=== PATIENT | female | born 1995 | race Caucasian/White ===

== ENCOUNTER 2016-12-12 14:27 | Emergency (ER) | payer BC, OTHER ==
[~2016-12-12] VITALS: Ht 157.5 cm; Wt 55.9 kg
[2016-12-12 14:30] VITALS: TEMP 37.3; Ht 157.5 cm; Wt 55.9 kg
[2016-12-12] MEDS ORDERED: KETOROLAC TROMETHAMINE 30 MG/ML VIAL IV STA (14:45)
[2016-12-12] MEDS ORDERED: ONDANSETRON INJ 2 MG/ML 2 ML VIAL IV STA ×2 (14:45→15:56)
[2016-12-12] MEDS ORDERED: SODIUM CHLORIDE 0.9% 1000ML 2,000 ML IV STA (14:45)
[2016-12-12 15:05] LABS: BASO % 0.4 %; BASO ABS # 0.03 K/uL (0-0.2); COMPLETE YES; EOS % 0.5 %; HEMATOCRIT 37.3 % (37-47); IG% 0.1 %; LYMPH % 36.3 %; LYMPH ABS # 3.04 K/uL (1.2-3.4); MEAN CELL VOLUME 86.7 fL (80-100); MEAN CORPUSCULAR HEMOGLOBIN 29.3 pg (25-34); MEAN CORPUSCULAR HGB CONC 33.8 g/dl (32-36); MEAN PLATELET VOLUME 10.8 fL (7.4-10.4); MONO % 7.9 %; NEUT % 54.8 %; PLATELET COUNT 301 K/uL (130-400); WHITE BLOOD COUNT 8.37 K/uL (4.8-10.8)
[2016-12-12 15:17] LABS: URINE APPEARANCE CLEAR (CLEAR); URINE BILIRUBIN NEG (NEG); URINE COLOR YELLOW; URINE NITRITE NEG (NEG); URINE PH 5.5 (4.5-7.5); UROBILINOGEN NEG (NEG); ZZUR CULT IF INDIC CLEAN CATCH NO
[2016-12-12 15:22] LABS: MANUAL MICROSCOPIC REQUIRED? NO; REVIEW REQ? NO
[2016-12-12 15:22] LABS: ALT/SGPT 13 U/L (12-78); AST/SGOT 9 U/L (15-37); BLOOD UREA NITROGEN 9 mg/dl (7-18); BUN/CREATININE RATIO 9.6 (10-20); CALCIUM 8.8 mg/dl (8.5-10.1); CARBON DIOXIDE 25 mmol/L (21-32); CHLORIDE 108 mmol/L (98-107); CREATININE 0.92 mg/dl (0.60-1.20); GLUCOSE 100 mg/dl (70-99); POTASSIUM 3.6 mmol/L (3.5-5.1); SODIUM 143 mmol/L (136-145)
[2016-12-12 15:23] LABS: PREG INTERNAL NEGATIVE QC NEG CLEAR BACKGROUND; PREG INTERNAL POSITIVE QC POS CONTROL LINE
[2016-12-12 15:25] LABS: ALKALINE PHOSPHATASE 62 U/L (45-117)
--- NOTE | 2016-12-12 17:12 | DIAGNOSTIC IMAGING REPORT ---
ULTRASOUND OF THE PELVIS CLINICAL HISTORY: Pelvic pain. COMPARISON STUDY: No priors. TECHNIQUE: Real-time, grayscale, and color flow sonography of the pelvis is performed both transabdominally and endovaginally. Images are reviewed in the transverse and longitudinal planes. FINDINGS: Uterus: The uterus is normal in size and echotexture, measuring 7.7 x 4.4 x 5.2 cm. Endometrium: The endometrium is normal in appearance, and the endometrial stripe is normal in thickness measuring up to 0.5 cm. Ovaries: The ovaries are normal in size and morphology. The right ovary measures 2.6 x 1.7 x 2.5 cm and the left ovary measures 2.6 x 1.5 x 2.4 cm. Small follicles are seen bilaterally. Normal Doppler waveforms are shown within both ovaries. Pelvis: There is trace free fluid in the cul-de-sac. No concerning adnexal lesion is seen. IMPRESSION: 1. No acute sonographic amount is identified in the pelvis. 2. There is trace and likely physiologic free fluid in the cul-de-sac. Electronically signed by: Javier Stevenson M.D. 12/12/2016 5:10 PM Dictated Date/Time: 12/12/2016 5:09 PM
[2016-12-12] MEDS ORDERED: METOCLOPRAMIDE HCL INJ 5 MG/ML 2 ML VIAL IV STA (17:22)
--- NOTE | 2016-12-12 17:35 | EMERGENCY ROOM VISIT NOTE ---
History Report prepared by Tha: Amy Moon Under the Supervision of: Dr. Agus Wahl D.O. First contact with patient: 14:35 Chief Complaint: NAUSEA Stated Complaint: NAUSEA, CRAMPING, BLADDER PAIN Nursing Triage Summary: pt c/o abd pain started yesterday , and urinary sx with burning for awhile now. feels nauseated and has vomited History of Present Illness Differential diagnoses includes but is not limited to gastritis, peptic ulcer disease, GERD, gallbladder disease, pancreatitis, small bowel obstruction, acute coronary syndrome, pericarditis, ischemic bowel, irritable bowel disease, irritable bowel syndrome, appendicitis, diverticulitis, malignancy, hernia, urinary tract infection, torsion, [/ectopic (if female)], perforation, trauma, infectious. The patient is a 21 year old female who presents to the Emergency Room with complaints of constant abdominal cramping beginning yesterday. The patient states that she got her period yesterday and, though she normally has bad periods, this is the worst that she has ever had. The patient complains of vomiting last night but not this morning, constant nausea, abdominal pain and cramping that is consistent with her normal periods, burning with urination that began 1 month ago, diarrhea beginning 1 month ago, and urinary frequency beginning 1 month ago. She denies any chest pain, shortness of breath, fever, abdominal surgeries, and abnormal vaginal bleeding or discharge. The patient states that the pain she is having today is the same type of pain that she usually has with her periods but it is worse. She notes that her last menstrual period was 1 month ago. Source of History: patient Onset: yesterday Position: abdomen Quality: cramping Timing: constant Associated Symptoms: + diarrhea, + nausea, + urinary symptoms, + vomiting, No SOB, No chest pain, No fevers Note: She denies any abdominal surgeries, and abnormal vaginal bleeding or discharge. Review of Systems See HPI for pertinent positives & negatives. A total of 10 systems reviewed and were otherwise negative. Past Medical & Surgical Medical Problems: (1) No Known Active Medical Problems Family History No pertinent family history stated. Social History Smoking Status: Never Smoker Smokeless Tobacco Use: No Marital Status: in relationship Occupation Status: employed Current/Historical Medications Scheduled PRN Ondansetron Hcl (Zofran), 4 MG PO TID PRN for Nausea Allergies Coded Allergies: No Known Allergies (Unverified , 12/12/16) Physical Exam Vital Signs Date Time Temp Pulse Resp B/P Pulse Ox O2 Delivery O2 Flow Rate FiO2 12/12/16 19:07 65 18 118/60 99 12/12/16 17:08 19 18 114/67 98 Room Air 12/12/16 16:12 62 17 115/57 98 Room Air 12/12/16 14:30 37.3 104 18 133/79 96 Room Air Physical Exam GENERAL: sitting up in bed, disheveled, no distress, non-toxic EYE EXAM: normal conjunctiva OROPHARYNX: no exudate, no erythema, lips, buccal mucosa, and tongue normal and mucous membranes are moist NECK: supple, no nuchal rigidity, no adenopathy, non-tender LUNGS: Clear to auscultation. Normal chest wall mechanics HEART: no murmurs, S1 normal and S2 normal ABDOMEN: abdomen soft, non-tender, normo-active bowel sounds, no masses, no rebound or guarding. BACK: Back is symmetrical on inspection and there is no deformity, no midline tenderness, no CVA tenderness. SKIN: no rashes and no bruising UPPER EXTREMITIES: upper extremities are grossly normal. LOWER EXTREMITIES: No pitting edema. NEURO EXAM: Normal sensorium, cranial nerves II-XII grossly intact, normal speech, no gross weakness of arms, no gross weakness of legs. Medical Decision & Procedures ER Provider Diagnostic Interpretation: US:Per my review, radiologist interpretation. ULTRASOUND OF THE PELVIS TECHNIQUE: Real-time, grayscale, and color flow sonography of the pelvis is performed both transabdominally and endovaginally. Images are reviewed in the transverse and longitudinal planes. FINDINGS: Uterus: The uterus is normal in size and echotexture, measuring 7.7 x 4.4 x 5.2 cm. Endometrium: The endometrium is normal in appearance, and the endometrial stripe is normal in thickness measuring up to 0.5 cm. Ovaries: The ovaries are normal in size and morphology. The right ovary measures 2.6 x 1.7 x 2.5 cm and the left ovary measures 2.6 x 1.5 x 2.4 cm. Small follicles are seen bilaterally. Normal Doppler waveforms are shown within both ovaries. Pelvis: There is trace free fluid in the cul-de-sac. No concerning adnexal lesion is seen. IMPRESSION: 1. No acute sonographic amount is identified in the pelvis. 2. There is trace and likely physiologic free fluid in the cul-de-sac. Electronically signed by: Javier Stevenson M.D. 12/12/2016 5:10 PM Dictated Date/Time: 12/12/2016 5:09 PM ULTRASOUND OF THE PELVIS FINDINGS: Uterus: The uterus is normal in size and echotexture, measuring 7.7 x 4.4 x 5.2 cm. Endometrium: The endometrium is normal in appearance, and the endometrial stripe is normal in thickness measuring up to 0.5 cm. Ovaries: The ovaries are normal in size and morphology. The right ovary measures 2.6 x 1.7 x 2.5 cm and the left ovary measures 2.6 x 1.5 x 2.4 cm. Small follicles are seen bilaterally. Normal Doppler waveforms are shown within both ovaries. Pelvis: There is trace free fluid in the cul-de-sac. No concerning adnexal lesion is seen. IMPRESSION: 1. No acute sonographic amount is identified in the pelvis. 2. There is trace and likely physiologic free fluid in the cul-de-sac. Electronically signed by: Javier Stevenson M.D. 12/12/2016 5:10 PM Dictated Date/Time: 12/12/2016 5:09 PM Laboratory Results 12/12/16 14:45 Red Blood Count 4.30, Mean Corpuscular Volume 86.7, Mean Corpuscular Hemoglobin 29.3, Mean Corpuscular Hemoglobin Concent 33.8, Mean Platelet Volume 10.8, Neutrophils (%) (Auto) 54.8, Lymphocytes (%) (Auto) 36.3, Monocytes (%) (Auto) 7.9, Eosinophils (%) (Auto) 0.5, Basophils (%) (Auto) 0.4, Neutrophils # (Auto) 4.59, Lymphocytes # (Auto) 3.04, Monocytes # (Auto) 0.66, Eosinophils # (Auto) 0.04, Basophils # (Auto) 0.03 12/12/16 14:45 Test 12/12/16 14:45 12/12/16 14:57 White Blood Count 8.37 K/uL (4.8-10.8) Red Blood Count 4.30 M/uL (4.2-5.4) Hemoglobin 12.6 g/dL (12.0-16.0) Hematocrit 37.3 % (37-47) Mean Corpuscular Volume 86.7 fL (80-100) Mean Corpuscular Hemoglobin 29.3 pg (25-34) Mean Corpuscular Hemoglobin Concent 33.8 g/dl (32-36) Platelet Count 301 K/uL (130-400) Mean Platelet Volume 10.8 fL (7.4-10.4) Neutrophils (%) (Auto) 54.8 % Lymphocytes (%) (Auto) 36.3 % Monocytes (%) (Auto) 7.9 % Eosinophils (%) (Auto) 0.5 % Basophils (%) (Auto) 0.4 % Neutrophils # (Auto) 4.59 K/uL (1.4-6.5) Lymphocytes # (Auto) 3.04 K/uL (1.2-3.4) Monocytes # (Auto) 0.66 K/uL (0.11-0.59) Eosinophils # (Auto) 0.04 K/uL (0-0.5) Basophils # (Auto) 0.03 K/uL (0-0.2) RDW Standard Deviation 42.4 fL (36.4-46.3) RDW Coefficient of Variation 13.3 % (11.5-14.5) Immature Granulocyte % (Auto) 0.1 % Immature Granulocyte # (Auto) 0.01 K/uL (0.00-0.02) Anion Gap 10.0 mmol/L (3-11) Est Creatinine Clear Calc Drug Dose 75.9 ml/min Estimated GFR () 102.4 Estimated GFR (Non- 88.4 BUN/Creatinine Ratio 9.6 (10-20) Calcium Level 8.8 mg/dl (8.5-10.1) Total Bilirubin 0.6 mg/dl (0.2-1) Direct Bilirubin < 0.1 mg/dl (0-0.2) Aspartate Amino Transf (AST/SGOT) 9 U/L (15-37) Alanine Aminotransferase (ALT/SGPT) 13 U/L (12-78) Alkaline Phosphatase 62 U/L (45-117) Total Protein 7.5 gm/dl (6.4-8.2) Albumin 3.9 gm/dl (3.4-5.0) Lipase 171 U/L (73-393) Urine Color YELLOW Urine Appearance CLEAR (CLEAR) Urine pH 5.5 (4.5-7.5) Urine Specific [place] 1.030 (1.000-1.030) Urine Protein NEG (NEG) Urine Glucose (UA) NEG (NEG) Urine Ketones NEG (NEG) Urine Occult Blood NEG (NEG) Urine Nitrite NEG (NEG) Urine Bilirubin NEG (NEG) Urine Urobilinogen NEG (NEG) Urine Leukocyte Esterase NEG (NEG) Urine WBC (Auto) 0 /hpf (0-5) Urine RBC (Auto) 0-4 /hpf (0-4) Urine Hyaline Casts (Auto) 0 /lpf (0-5) Urine Epithelial Cells (Auto) 5-10 /lpf (0-5) Urine Bacteria (Auto) NEG (NEG) Urine Test NEG (NEG) Laboratory results per my review. Medications Administered Medications (Trade) Dose Ordered Sig/Rod Route Start Time Stop Time Status Last Admin Dose Admin Sodium Chloride (Nss 1000ml) 2,000 ml @ 999 mls/hr Q2H1M STAT IV 12/12/16 14:45 12/12/16 16:45 DC 12/12/16 14:45 999 MLS/HR Ondansetron HCl (Zofran Inj) 4 mg NOW STAT IV 12/12/16 14:45 12/12/16 14:47 DC 12/12/16 14:45 4 MG Ketorolac Tromethamine (Toradol Inj) 30 mg NOW STAT IV 12/12/16 14:45 12/12/16 14:47 DC 12/12/16 14:45 30 MG Ondansetron HCl (Zofran Inj) 4 mg NOW STAT IV 12/12/16 15:56 12/12/16 15:57 DC 12/12/16 16:11 4 MG Metoclopramide HCl 10 mg 10 mg NOW STAT IV 12/12/16 17:22 12/12/16 17:23 DC 12/12/16 17:36 10 MG Promethazine HCl/ Sodium Chloride (Phenergan Inj/ Nss 50ml) 51 ml @ 204 mls/hr NOW STAT IV 12/12/16 17:50 12/12/16 18:04 DC 12/12/16 18:10 204 MLS/HR ED Course ED COURSE: Vital signs were reviewed and tachycardic The patients medical record was reviewed The above diagnostic studies were performed and reviewed. ED treatments and interventions as stated above. 1435: The patient was evaluated in room C12. A complete history and physical examination was performed. 1445: Toradol Inj 30mg IV, Zofran Inj 4mg IV, Sodium Chloride 2000ml @ 999mls/ hr IV. 1556: I reevaluated the patient. She states that her pain has gone away but she is feeling nauseous. 1556: Zofran Inj 4mg IV. 1721: I reevaluated the patient. She is feeling more nauseous. 1722: Reglan Inj 10mg IV. 1750: Promethazine HCl 51ml @ 204mls/hr. 1834: I reevaluated the patient. She is feeling better. 1837: Upon reevaluation, the patient is hemodynamically stable.I discussed my findings with the patient and she understands and agrees with the treatment plan. Based on the patients age, coexisting illnesses, exam and lab findings the decision to treat as an outpatient was made. The patient remained stable while under my care. The patient appeared well at the time of discharge. Medical Decision Differential diagnoses includes but is not limited to gastritis, peptic ulcer disease, GERD, gallbladder disease, pancreatitis, small bowel obstruction, acute coronary syndrome, pericarditis, ischemic bowel, irritable bowel disease, irritable bowel syndrome, appendicitis, diverticulitis, malignancy, hernia, urinary tract infection, torsion, [/ectopic (if female)], perforation, trauma, infectious. Patient is a 19-year-old female who presents the ER for diffuse abdominal pain which started yesterday along with her menstrual period. Last mental period was over a month ago. She denies any STDs. She has had pain with urination for the past month. UA is clean. Labs including CBC, BMP, LFTs, bilirubin and lipase were normal. Ultrasound of her pelvis was unremarkable. She does currently have her menstrual period and I recommended a pelvic exam but felt that it would be of little benefit at this time. She will follow-up with an outpatient provider for this. She denied any new a charge. She notes that this pain is typical for her menstruation but worse. Labs show no significant leukocytosis or anemia. BMP along with LFTs, bilirubin and lipase was normal. UA was negative along with a urine pelvic ultrasound was unremarkable. She currently does have her period and notes that she gets these symptoms every month when she gets her period. As she does currently have her menstrual period I did not feel a pelvic would be beneficial. Patient was given multiple doses Zofran and Phenergan with improvement of her symptoms. She did vomit initially following getting Phenergan as she notes she felt very weird initially upon receiving this medication. Patient felt slightly better was discharged follow-up with SLEEP TECHNICIAN. Discussed with Pt concerning signs and symptoms to watch out for. Pt was instructed to follow up with their PCP and discussed with the patient their option to return to the ED at anytime for persistent or worsening symptoms. The appropriate anticipatory guidance and out- patient management, including indications for return to the emergency department , were explained at length to the patient and understood. Impression Primary Impression: Lower abdominal pain Additional Impression: Dysmenorrhea Scribe Attestation The scribe's documentation has been prepared under my direction and personally reviewed by me in its entirety. I confirm that the note above accurately reflects all work, treatment, procedures, and medical decision making performed by me. Departure Information Dispostion Home / Self-Care Prescriptions Ondansetron Hcl (ZOFRAN) 4 Mg Tab 4 MG PO TID Y for Nausea, #30 TAB Prov: Agus Wahl, DO 12/12/16 Referrals No Doctor, Assigned (PCP) Forms HOME CARE DOCUMENTATION FORM, IMPORTANT VISIT INFORMATION Patient Instructions Abdominal Pain - [facility] Additional Instructions Please follow up with your primary care doctor or if you are a student [place] [facility] with in the next 24 hours. Any worsening of your symptoms, please return to the ED immediately. This includes fevers grade and 100.4, worsening abdominal pain, persistent nausea vomiting, or any other concerning signs or symptoms from your standpoint. Please take Tylenol or Motrin as needed for pain. Please use Zofran as needed for nausea/vomiting. Please follow up with gynecology as listed below. Problem Qualifiers
[2016-12-12] MEDS ORDERED: PROMETHAZINE HCL INJ 25 MG in SODIUM CHLORIDE 0.9% 50ML 50 ML IV STA (17:50)
[2016-12-12] MEDS ORDERED: ONDA4TAB46 PO (18:36)
[2016-12-12 19:07] VITALS: BP 118/60; PULSE 65; O2SAT 99
== END 2016-12-12 19:10 | disposition home or self-care (01) ==
LOC: C.EDB 14:30 → C.EDC 19:10
DX: R10.30 Lower abdominal pain, unspecified (principal); N94.6 Dysmenorrhea, unspecified; R11.2 Nausea with vomiting, unspecified; R19.7 Diarrhea, unspecified

== ENCOUNTER 2025-05-22 15:17 | Inpatient (IN) ==
[2025-05-23] MEDS ORDERED: LIDOCAINE 1% LOCAL 20 ML VIAL INFIL PRN (01:53)
[2025-05-23] MEDS ORDERED: OXYTOCIN 30 UNITS/NSS 30 UNITS/500 ML BAG IV PRN (01:53)
--- NOTE | 2025-05-23 01:58 | Obstetrical Progress Note ---
Date of Service May 23, 2025 Assessment & Plan (1) : Plan: Induction of labor FHR; CAT1 VE; Ft/Thick/post Ctx; Minimal Bedside sono: VT Cytotec 50mcg Q4 Admission and Anticipated Discharge Date Admission Date: May 22, 2025 Results & Data Vital Signs (Past 12 Hours) Vital Signs Temp Pulse Resp BP Pulse Ox 05/23/25 01:15 71 120/75 05/23/25 00:26 85 99 05/23/25 00:21 85 98 05/23/25 00:16 84 99 05/23/25 00:15 80 134/84 05/23/25 00:11 74 99 05/23/25 00:05 37.1 C 80 20 134/84 98
[2025-05-23 02:34] LABS: Hematocrit (blood only) 36.1 % (37.0-47.0); Hemoglobin 12.4 g/dl (12.0-16.0); Mean Corpuscular Hemoglobin 32.5 pg (25.0-34.0); Mean Corpuscular Volume 94.8 fL (80.0-100.0); Platelet Count 184 K/uL (130-400); RDW Standard Deviation 45.3 fL (36.4-46.3); Red Blood Count 3.81 M/uL (4.20-5.40); White Blood Count 9.60 K/ul (4.8-10.8)
[2025-05-23] MEDS: LACTATED RINGER'S 1,000 ML IV PRN (02:45)
[2025-05-23] MEDS: miSOPROStoL 50 MCG TAB PO SCH (04:00)
--- NOTE | 2025-05-23 09:58 | Labor Progress Brief Note ---
Date of Service May 23, 2025 Assessment & Plan Admission and Anticipated Discharge Date Admission Date: May 22, 2025 Physical Exam Genitourinary: Manual OB Exam: + cervical dilation fingertip, + cervical effacement 20% and + station high OB Exam Monitor Tracing: + external FHT monitor used, + external uterine monitor used, + category I and + normal FHT variability cervix thick and high will continue ripening with Cytotec Results & Data Vital Signs (Past 12 Hours) Vital Signs Temp Pulse Resp BP Pulse Ox 05/23/25 07:07 36.8 C 66 18 135/87 05/23/25 05:00 36.8 C 05/23/25 04:17 63 126/70 05/23/25 01:15 71 120/75 05/23/25 00:26 85 99 05/23/25 00:21 85 98 05/23/25 00:16 84 99 05/23/25 00:15 37.1 C 80 134/84 05/23/25 00:11 74 99 05/23/25 00:05 37.1 C 80 20 134/84 98
--- NOTE | 2025-05-23 18:03 | Labor Progress Brief Note ---
Date of Service May 23, 2025 Assessment & Plan Admission and Anticipated Discharge Date Admission Date: May 22, 2025 Physical Exam Constitutional: WD/WN, vitals as above Genitourinary: Manual OB Exam: + cervical dilation fingertip, + cervical effacement 20% and + station high OB Exam Monitor Tracing: + external FHT monitor used, + external uterine monitor used, + category I and + normal FHT variability Campbell placed transcervically with 35 ml. saline placed in balloon. Patient tolerated the procedure well. Results & Data Vital Signs (Past 12 Hours) Vital Signs Temp Pulse Resp BP 05/23/25 15:03 68 129/72 05/23/25 10:49 36.8 C 70 18 132/79 05/23/25 07:07 36.8 C 66 18 135/87
[2025-05-23] MEDS: BUTORPHANOL TARTRATE 1 MG/ML VIAL IV PRN (20:56)
--- NOTE | 2025-05-24 08:56 | History & Physical Report ---
Date of Service May 24, 2025 Assessment & Plan (1) Polyhydramnios affecting in third trimester: Plan: 29-year-old -1-0-0 at 39 weeks and 6 days of gestation with mild polyhydramnios admitted yesterday for induction of labor status post p.o. Cytotec and Campbell balloon which was removed this morning now going into labor with cervical dilatation and regular contractions, Vital signs stable afebrile, GBS negative, heart rate reassuring, Plan to monitor, patient will decide for getting epidural or not, All questions were answered. (2) with 39 completed weeks gestation: (3) History of thyroid cancer: Admission and Anticipated Discharge Date Admission Date: May 22, 2025 History of Present Illness Primary Care Provider: NO PCP Patient is a 29-year-old -0-1-0 at 39 weeks and 6 days of gestation who was admitted yesterday for induction of labor at term for mild polyhydramnios, Patient received 5 doses of p.o. Cytotec followed by Campbell bulb mechanical dilatation placed last night by Dr. Berumen. She has been feeling contractions every 1 to 3 minutes pain level is 4 out of 10. Patient does not plan to get epidural. No leakage of fluid or vaginal bleeding. She reports good movements. Her has been complicated by, 1.Mild polyhydramnios, last DHAVAL was 26.5 cm, GDM testing was negative, 2. History of thyroid cancer with partial thyroidectomy at age 16 has been seeing endocrine and not needing thyroid replacement therapy 3. uterine fibroid, subserosal Allergies Allergy/AdvReac Type Severity Reaction Status Date / Time No Known Allergies Allergy Verified 05/23/25 05:25 Home Medications Medication Instructions Recorded Confirmed Type vitamins with calcium 1 tab PO DAILY 05/23/25 05/23/25 History no.72-iron 27 mg-folic acid 1 mg tablet ( Vitamins Plus Low Iron) Patient History Social History Smoking Status: Former smoker Tobacco Type: Cigarettes Second Hand Exposure: No; Do You Dip or Chew Tobacco: No; Tobacco Cessation Education Requested by Patient: No Hx Alcohol Use: Yes Hx Substance Use: No Preferred Language: Hebrew Communication Ability: Effective Surgical Oncologist Required: No Beliefs That Will Affect Care: None marital status: Current Living Situation: Spouse Other Information That Helps Us Care for You: No Feels Safe at Home: Yes Safety Concerns: Feels Safe At This Time Assistive Devices: None LOAD DISPATCHER LOCAL History No h/o STD's Review of Systems as per Subjective / HPI Physical Exam Constitutional: WD/WN, vitals as above Gastrointestinal (Abdomen): normal bowel sounds, soft, nontender, no hepatosplenomegaly Genitourinary: Manual OB Exam: + cervical dilation 5 cm, + cervical effacement 50% and + station -2 ( tight bulging bag) OB Exam Monitor Tracing: + external uterine monitor used and + category I Results & Data Vital Signs (Past 12 Hours) Vital Signs Temp Pulse Resp BP 05/24/25 07:07 20 05/24/25 07:07 36.9 C 20 05/24/25 07:06 71 127/78 05/24/25 02:27 36.7 C 64 16 105/55 L 05/23/25 23:39 36.7 C 74 18 122/69 Laboratory Results Lab Results 05/23/25 Range/Units 02:03 WBC 9.60 (4.8-10.8) K/ul RBC 3.81 L (4.20-5.40) M/uL Hgb 12.4 (12.0-16.0) g/dl Hct 36.1 L (37.0-47.0) % MCV 94.8 (80.0-100.0) fL MCH 32.5 (25.0-34.0) pg MCHC 34.3 (32.0-36.0) g/dL RDW Std Deviation 45.3 (36.4-46.3) fL RDW Coeff of Cesar 13.2 (11.5-14.5) % Plt Count 184 (130-400) K/uL MPV 12.4 (9.4-12.4) fL Treponema pallidum Ab Negative (Negative) Blood Type O Positive Antibody Screen NEGATIVE
--- NOTE | 2025-05-24 14:09 | Obstetrical Progress Note ---
Date of Service May 24, 2025 Assessment & Plan Admission and Anticipated Discharge Date Admission Date: May 22, 2025 Subjective Patient is reevaluated. She has been walking on the hallways and took shower. Contractions are still coming not sure how often but they are painful for her. Did not want to get epidural. heart rate category 1, [place] shows contractions every 2 to 3 minutes, Cervix is 5 cm dilated, 70% effaced, head -2, bulging bag, AROM, abundant clear fluid was obtained, Continue to monitor closely, All questions were answered. Results & Data Vital Signs (Past 12 Hours) Vital Signs Temp Pulse Resp BP 05/24/25 11:50 05/24/25 11:50 36.9 C 05/24/25 11:49 75 130/84 05/24/25 07:07 20 05/24/25 07:07 36.9 C 05/24/25 07:06 71 127/78 05/24/25 02:27 36.7 C 64 16 105/55 L
[2025-05-24] MEDS ORDERED: LIDOCAINE 2% MPF LOCAL 5 ML VIAL EPI PRN (16:05)
[2025-05-24] MEDS ORDERED: NALOXONE HCL 0.4 MG/1 ML VIAL/CARP IV PRN ×2 (16:05→23:46)
[2025-05-24] MEDS ORDERED: ROPIVACAINE 0.5% PF 5 MG/ML 20 ML VIAL EPI PRN (16:05)
[2025-05-24] MEDS ORDERED: NALOXONE HCL 1 MG in SODIUM CHLORIDE 0.9% 1,000 ML IV PRN ×2 (16:05→23:46)
[2025-05-24] MEDS ORDERED: diphenhydrAMINE 50 MG/ML VIAL IV PRN ×2 (16:05→23:46)
[2025-05-24] MEDS ORDERED: NALBUPHINE HCL INJ 10 MG/ML AMP IV PRN ×2 (16:05→23:46)
[2025-05-24] MEDS ORDERED: SODIUM CHLORIDE 0.9% PF INJ 10 ML VIAL EPI PRN (16:05)
[2025-05-24] MEDS ORDERED: BUPIVACAINE 0.25% PF 30 ML VIAL EPI PRN (16:05)
--- NOTE | 2025-05-24 16:05 | Anesthesiology Consultation ---
Date of Service May 24, 2025 Assessment & Plan Chart Review Chart Review: Acceptable Risk for Labor Epidural Consults Requested none History Height/Weight Height: 5 ft 2 in Weight: 73.936 kg Allergies Allergy/AdvReac Type Severity Reaction Status Date / Time No Known Allergies Allergy Verified 05/23/25 05:25 Medications Home Medications Medication Instructions Recorded Confirmed Last Taken vitamins with calcium 1 tab PO DAILY 05/23/25 05/23/25 05/22/25 no.72-iron 27 mg-folic acid 1 mg tablet ( Vitamins Plus Low Iron) Active Medications Generic Name Dose Route Start Last Admin Trade Name Freq PRN Reason Stop Dose Admin Butorphanol Tartrate 1 mg 05/23/25 18:01 05/23/25 20:56 Butorphanol Tartrate 1 Mg/Ml Vial IV 06/22/25 18:00 1 mg Q2HWA PRN Administration Pain Lactated Ringer's 1,000 mls @ 125 mls/hr 05/23/25 01:53 05/24/25 15:50 Lr IV 05/25/25 01:52 999 mls/hr .Q8H PRN Infusion L&D Protocol Protocol Social History Smoking Status: Former smoker Do You Dip or Chew Tobacco: No Hx Alcohol Use: Yes Hx Substance Use: No Physical Exam Vital Signs Last Vital Signs Temp 36.9 C 05/24/25 14:10 Pulse 76 05/24/25 15:49 Resp 18 05/24/25 14:10 BP 136/84 05/24/25 15:49 Pulse Ox 99 05/23/25 00:26 Testing Laboratory Results 05/23/25 02:03 Blood Type O Positive 05/23/25 02:03 Antibody Screen NEGATIVE 05/23/25 02:03
[2025-05-24] MEDS: fentANYL 2 MCG/ML BUPIVacaine 0.125%-NSS 100ML BAG EPI PRN (16:22)
[2025-05-24] MEDS: LIDOCAINE 2%/EPINEPHRINE 1:200,000 20 ML PF ONE (16:23)
[2025-05-24] MEDS: OXYTOCIN 30 UNITS/NSS 30 UNITS/500 ML BAG IV PRN (16:46)
[2025-05-24] MEDS: BUPIVACAINE 0.25% PF 30 ML VIAL ONE (17:03)
[2025-05-24] MEDS: fentANYL 2 MCG/ML BUPIVacaine 0.125%-NSS 100ML BAG ONE (17:03)
[2025-05-24] MEDS: SODIUM CHLORIDE 0.9% PF INJ 10 ML VIAL ONE (17:03)
[2025-05-24] MEDS: LIDOCAINE 2%/EPINEPHRINE 1:200,000 20 ML PF EPI STA (17:19)
[2025-05-24] MEDS: BUPIVACAINE 0.25% PF 30 ML VIAL EPI STA (17:19)
[2025-05-24] MEDS: SODIUM CHLORIDE 0.9% PF INJ 10 ML VIAL EPI STA (17:19)
--- NOTE | 2025-05-24 18:55 | Obstetrical Progress Note ---
Date of Service May 24, 2025 Assessment & Plan Admission and Anticipated Discharge Date Admission Date: May 22, 2025 Subjective Patient received epidural, comfortable and has been sleeping. heart rate has been category 1, Contractions every 2 to 4 minutes, oxytocin at 8 milliunits/min, Cervix is unchanged 4-5 cm, 70%, head at -2 station, clear fluids, Change positions and adjust oxytocin dose, continue monitor closely, Results & Data Vital Signs (Past 12 Hours) Vital Signs Temp Pulse Resp BP Pulse Ox 05/24/25 18:50 90 92 05/24/25 18:49 80 99 05/24/25 18:47 69 110/65 05/24/25 18:44 70 96 05/24/25 18:39 69 96 05/24/25 18:34 68 96 05/24/25 18:32 68 115/71 05/24/25 18:30 18 05/24/25 18:30 18 05/24/25 18:29 69 96 05/24/25 18:24 69 96 05/24/25 18:19 71 96 05/24/25 18:16 68 111/69 05/24/25 18:14 68 97 05/24/25 18:09 66 97 05/24/25 18:04 75 98 05/24/25 18:01 66 124/69 05/24/25 17:59 70 99 05/24/25 17:54 71 98 05/24/25 17:49 80 99 05/24/25 17:48 71 122/68 05/24/25 17:46 37.0 C 05/24/25 17:44 74 99 05/24/25 17:39 74 99 05/24/25 17:34 88 97 05/24/25 17:32 83 117/72 05/24/25 17:30 18 05/24/25 17:30 18 05/24/25 17:29 75 99 05/24/25 17:24 84 99 05/24/25 17:19 75 98 05/24/25 17:16 76 129/68 05/24/25 17:14 76 98 05/24/25 17:10 72 119/69 05/24/25 17:09 76 99 05/24/25 17:05 79 128/75 05/24/25 17:04 78 100 05/24/25 17:00 74 18 123/66 08/14/25 16:59 76 98 05/24/25 16:55 83 20 131/61 05/24/25 16:54 83 97 05/24/25 16:50 89 20 124/70 05/24/25 16:49 92 H 98 05/24/25 16:48 78 126/69 05/24/25 16:46 81 136/76 05/24/25 16:44 100 05/24/25 16:44 82 05/24/25 16:44 82 140/83 05/24/25 16:42 88 139/80 05/24/25 16:40 95 H 20 128/70 05/24/25 16:39 83 99 05/24/25 16:38 75 134/75 05/24/25 16:36 90 124/74 05/24/25 16:35 20 05/24/25 16:35 20 05/24/25 16:34 81 124/71 99 05/24/25 16:33 79 116/72 05/24/25 16:31 75 125/65 05/24/25 16:30 20 05/24/25 16:30 20 05/24/25 16:29 76 99 05/24/25 16:28 81 149/70 H 05/24/25 16:26 20 05/24/25 16:26 36.7 C 20 05/24/25 16:24 83 98 05/24/25 16:21 86 92 05/24/25 16:19 88 98 05/24/25 16:14 94 H 100 05/24/25 16:09 73 100 05/24/25 16:04 81 100 05/24/25 15:49 76 136/84 05/24/25 14:10 18 05/24/25 14:10 36.9 C 18 05/24/25 14:09 75 142/90 H 05/24/25 11:50 20 05/24/25 11:50 36.9 C 20 05/24/25 11:49 75 130/84 05/24/25 07:07 20 05/24/25 07:07 36.9 C 20 05/24/25 07:06 71 127/78
[2025-05-24] MEDS ORDERED: LIDOCAINE 2%/EPINEPHRINE 1:200,000 20 ML PF ONE ×2 (20:12→23:04)
--- NOTE | 2025-05-24 20:30 | Anesthesia Procedure Note ---
Date of Service May 24, 2025 Anesthesia Epidural Re-Dose Vital Signs Temp Pulse Resp BP Pulse Ox 37.2 C 80 18 131/77 98 05/24/25 19:07 05/24/25 20:24 05/24/25 19:07 05/24/25 20:17 05/24/25 20:24 Notes Pain Intensity: 5 Dilatation (cm): 5.0 Effacement (%): 70 Called by nursing to evaluate epidural as the patient is having increased pain. The epidural was re-dosed with the following medications (all medications via epidural route) after negative aspiration of the epidural catheter for CSF/HEME. 5 cc 2% Lidocaine w/epi via epidural After Epidural Re-Dose Mental Status: alert / awake / arousable and participated in evaluation Pain: improving with treatment Airway Patency, RR, SpO2: stable & adequate BP & HR: stable & adequate
[2025-05-24] MEDS ORDERED: PHENYLEPHRINE HCL 10 MG/ML VIAL ONE (23:06)
--- NOTE | 2025-05-24 23:10 | Obstetrical Progress Note ---
Date of Service May 24, 2025 Assessment & Plan Admission and Anticipated Discharge Date Admission Date: May 22, 2025 Subjective Patient has questions about her progress. Wanted to be rechecked. IUPC in place documented adequate uterine contractions, cervix is unchanged, heart rate category 1, Discussed findings of arrest of dilatation active phase of labor options of either continuing with oxytocin or proceeding with primary delivery. Patient desires delivery. Patient understands C section is a major surgery, with risks including but not limited to bleeding , infection, injury to surrounding organs like bowels, bladder, ureters, adhesions, scarring, wound infection, blood cloths in legs/ lungs, longer recovery. All questions were answered. She signed an informed consent. Results & Data Vital Signs (Past 12 Hours) Vital Signs Temp Pulse Resp BP Pulse Ox 05/24/25 23:04 98 H 100 05/24/25 23:02 107 H 132/78 05/24/25 22:59 91 H 97 05/24/25 22:54 95 H 98 05/24/25 22:49 89 98 05/24/25 22:47 106 H 133/73 05/24/25 22:44 96 H 99 05/24/25 22:39 105 H 99 05/24/25 22:34 120 H 99 05/24/25 22:31 130 H 136/105 H 05/24/25 22:29 93 H 99 05/24/25 22:24 88 97 05/24/25 22:19 97 H 99 05/24/25 22:18 96 H 137/71 05/24/25 22:14 111 H 99 05/24/25 22:09 101 H 100 05/24/25 22:04 95 H 99 05/24/25 22:01 88 119/77 05/24/25 22:00 18 05/24/25 22:00 18 05/24/25 21:59 109 H 100 05/24/25 21:54 99 H 98 05/24/25 21:49 79 97 05/24/25 21:46 83 103/56 L 05/24/25 21:44 79 97 05/24/25 21:39 83 98 05/24/25 21:34 88 99 05/24/25 21:31 87 109/58 L 05/24/25 21:30 18 05/24/25 21:30 18 05/24/25 21:29 80 99 05/24/25 21:24 92 H 99 05/24/25 21:19 80 98 05/24/25 21:16 98 H 109/56 L 05/24/25 21:14 90 98 05/24/25 21:09 79 99 05/24/25 21:06 105 H 93 05/24/25 21:04 77 100 05/24/25 21:03 78 119/58 L 05/24/25 21:00 18 05/24/25 21:00 37.2 C 18 05/24/25 20:59 79 97 05/24/25 20:54 82 99 05/24/25 20:49 80 99 05/24/25 20:48 85 117/57 L 05/24/25 20:44 77 99 05/24/25 20:39 84 98 05/24/25 20:34 77 97 05/24/25 20:33 80 120/58 L 05/24/25 20:30 18 05/24/25 20:30 18 05/24/25 20:29 85 99 05/24/25 20:24 80 98 05/24/25 20:19 77 98 05/24/25 20:17 78 131/77 05/24/25 20:14 78 99 05/24/25 20:09 74 98 05/24/25 20:04 77 98 05/24/25 20:02 70 131/68 05/24/25 20:00 18 05/24/25 20:00 18 05/24/25 19:59 74 99 05/24/25 19:54 73 99 05/24/25 19:49 75 99 05/24/25 19:48 71 133/74 05/24/25 19:44 81 99 05/24/25 19:39 83 96 05/24/25 19:34 91 H 100 05/24/25 19:32 78 112/56 L 05/24/25 19:30 16 05/24/25 19:30 16 05/24/25 19:29 76 98 05/24/25 19:24 82 97 05/24/25 19:19 76 96 05/24/25 19:17 79 115/57 L 05/24/25 19:14 82 100 05/24/25 19:09 73 98 05/24/25 19:07 37.2 C 18 05/24/25 19:04 79 97 05/24/25 19:01 93 H 111/58 L 05/24/25 18:59 73 97 05/24/25 18:54 72 98 05/24/25 18:50 90 92 05/24/25 18:49 80 99 05/24/25 18:47 69 110/65 05/24/25 18:44 70 96 05/24/25 18:39 69 96 05/24/25 18:34 68 96 05/24/25 18:32 68 115/71 05/24/25 18:30 18 05/24/25 18:30 18 05/24/25 18:29 69 96 05/24/25 18:24 69 96 05/24/25 18:19 71 96 05/24/25 18:16 68 111/69 05/24/25 18:14 68 97 05/24/25 18:09 66 97 05/24/25 18:04 75 98 05/24/25 18:01 66 124/69 05/24/25 17:59 70 99 05/24/25 17:54 71 98 05/24/25 17:49 80 99 05/24/25 17:48 71 122/68 05/24/25 17:46 37.0 C 05/24/25 17:44 74 99 05/24/25 17:39 74 99 05/24/25 17:34 88 97 05/24/25 17:32 83 117/72 05/24/25 17:30 18 05/24/25 17:30 18 05/24/25 17:29 75 99 05/24/25 17:24 84 99 05/24/25 17:19 75 98 05/24/25 17:16 76 129/68 05/24/25 17:14 76 98 05/24/25 17:10 72 119/69 05/24/25 17:09 76 99 05/24/25 17:05 79 128/75 05/24/25 17:04 78 100 05/24/25 17:00 74 18 123/66 05/24/25 16:59 76 98 05/24/25 16:55 83 20 131/61 05/24/25 16:54 83 97 05/24/25 16:50 89 20 124/70 05/24/25 16:49 92 H 98 05/24/25 16:48 78 126/69 05/24/25 16:46 81 136/76 05/24/25 16:44 100 05/24/25 16:44 82 05/24/25 16:44 82 140/83 05/24/25 16:42 88 139/80 05/24/25 16:40 95 H 20 128/70 05/24/25 16:39 83 99 05/24/25 16:38 75 134/75 05/24/25 16:36 90 124/74 05/24/25 16:35 20 05/24/25 16:35 20 05/24/25 16:34 81 124/71 99 05/24/25 16:33 79 116/72 05/24/25 16:31 75 125/65 05/24/25 16:30 20 05/24/25 16:30 20 05/24/25 16:29 76 99 05/24/25 16:28 81 149/70 H 05/24/25 16:26 20 05/24/25 16:26 36.7 C 20 05/24/25 16:24 83 98 05/24/25 16:21 86 92 05/24/25 16:19 88 98 05/24/25 16:14 94 H 100 05/24/25 16:09 73 100 05/24/25 16:04 81 100 05/24/25 15:49 76 136/84 05/24/25 14:10 18 05/24/25 14:10 36.9 C 18 05/24/25 14:09 75 142/90 H 05/24/25 11:50 20 05/24/25 11:50 36.9 C 20 05/24/25 11:49 75 130/84
[2025-05-24] MEDS: AZITHROMYCIN 500 MG/255 ML BAG IV ONE (23:21)
[2025-05-24] MEDS ORDERED: OXYTOCIN 10 UNITS/ML VIAL ONE ×4 (23:27→23:59)
[2025-05-24] MEDS ORDERED: NO NARCOTICS OR SEDATIVES SCH (23:45)
[2025-05-24] MEDS ORDERED: SODIUM CHLORIDE 0.9% 1,000 ML IV SCH (23:45)
[2025-05-24] MEDS ORDERED: DC INTRASPINAL MORPHINE SCH (23:45)
[2025-05-24] MEDS ORDERED: ONDANSETRON INJ 2 MG/ML 2 ML VIAL IV PRN (23:46)
[2025-05-24] MEDS ORDERED: NALOXONE HCL 0.08 MG in SYRINGE 1.8 ML IV PRN (23:46)
[2025-05-24] MEDS ORDERED: MoRPHine SULFATE PF 1 MG/ML 10 ML AMP/VIAL ONE (23:46)
[2025-05-24] MEDS ORDERED: LACTATED RINGER'S 500 ML IV PRN (23:46)
[2025-05-24] MEDS ORDERED: MoRPHine SULFATE PF 1 MG/ML 10 ML AMP/VIAL INT SPINAL ONE (23:46)
[2025-05-24] MEDS ORDERED: DROPERIDOL 5 MG/2 ML VIAL IV PRN (23:46)
[2025-05-24] MEDS ORDERED: ONDANSETRON INJ 2 MG/ML 2 ML VIAL ONE ×2 (23:50→23:59)
[2025-05-25] MEDS ORDERED: METHYLERGONOVINE MALEATE 0.2 MG/ML AMP ONE (00:02)
[2025-05-25] MEDS ORDERED: PROPOFOL IV EMULSION 10 MG/ML 20 ML VIAL IV ONE (00:10)
[2025-05-25] MEDS ORDERED: diphenhydrAMINE 50 MG/ML VIAL ONE (00:23)
[2025-05-25] MEDS ORDERED: SENNA 8.6 MG TAB PO PRN (00:32)
[2025-05-25] MEDS ORDERED: MAGNESIUM HYDROXIDE SUSP 30 ML UDC PO PRN (00:32)
[2025-05-25] MEDS ORDERED: DIPHTHER/TETAN/PERTUS Vaccine (Tdap, Adol/Adult) 0.5mL IM ONE (00:32)
[2025-05-25] MEDS ORDERED: HYDROCORTISONE ACETATE 25 MG SUPP PR PRN (00:32)
[2025-05-25] MEDS ORDERED: BENZOCAINE 20% SPRY 85 APPLN/85 GM CAN EXT PRN (00:32)
[2025-05-25] MEDS ORDERED: CALCIUM CARBONATE 500 MG CHEWABLE TAB PO PRN (00:32)
[2025-05-25] MEDS ORDERED: LACTATED RINGER'S 1,000 ML IV SCH (00:45)
[2025-05-25] MEDS: KETOROLAC 30 MG/ML VIAL ONE (00:46)
[2025-05-25] MEDS: OXYTOCIN 20 UNITS/LR 1,002 ML IV SCH (00:53)
--- NOTE | 2025-05-25 00:55 | Operative Report ---
Post Operative Report Pre & Post Diagnosis Operation Date: 05/24/25 23:30 Pre-Op Diagnosis: Primary C/S for failure to progress Arrest of dilatation active phase of labor Post-Op Diagnosis: same I identified the patient and participated in the time-out.: Yes Procedure Operation Date: 05/24/25 23:30 Actual Procedures p Section in for LFC at 2351(Bilateral) - Lillie Lima MD Surgeon Lillie Lima MD Performance Improvement Consultant Shefali arana RN Quantitative Blood Loss (QBL) 970 Findings Consistent with Post-Op Diagnosis baby was a viable female infant delivered in cephalic presentation, direct occiput posterior position, at 20 3:51 PM, Apgars 9/9, weight is 3620 g, Maternal findings, irregular shape subserosal fibroids on the right corner of fundus, about 4 x 3 x 2 cm, otherwise normal uterus fallopian tubes and ovaries Specimens placenta and cord Drains Campbell catheter drained 100 mL of clear urine Anesthesia Type Labor Epidural Complications none Indications patient is a 29-year-old at 39 weeks and 6 days of gestation who was admitted on 81 morning for induction of labor at term for polyhydramnios, she has received p.o. Cytotec for cervical ripening followed by Campbell balloon catheter placement for mechanical dilatation. Balloon came out on the morning of 814 when her cervix was 5 cm dilated, 70% effaced head was -3 station ballotable with a bulging bag. She was having regular contractions. She decided to go unmedicated and expectant management, ambulated and took shower for pain control. she then decided to get epidural in the afternoon, followed by the oxytocin to augment her contractions per protocol. She was ruptured by myself in the afternoon after which IV oxytocin was continued. Despite adequate regular contractions cervix remained the same and had stayed high with no descent. Decision was made to proceed with primary due to arrest of dilatation and active phase of labor. Patient agreed and signed informed consent. Description of Procedure Patient was taken to operating room where a spinal anesthesia was given without difficulty. She was placed in dorsal supine position with a leftward tilt. She was prepared and draped in usual sterile fashion. A financial skin incision was made and carried through to the underlying layer of fascia with the Bovie. Fascia was incised in the midline and incision was extended laterally with the help of Weinberg scissors. Then the upper aspect of the fascial incision was grasped with 2 Roseanne clamps elevated the underlying rectus muscles were dissected off sharply with Weinberg scissors. Same thing was done on the lower incision. Then the muscles were in the midline, peritoneum was identified grasped with 2 pickups and entered sharply with Metzenbaum scissors. Peritoneal incision was extended superior and inferiorly with good visualization of the bladder. The bladder blade was inserted. Vesicouterine peritoneum was i dentified, grasped with pickups and entered sharply with Metzenbaum scissors, bladder flap was created digitally and bladder blade was reinserted. Uterus was incised in transverse fashion, incision was extended laterally, membranes were ruptured and clear fluid was obtained. Baby's head was Indirect occiput posterior position, patient up to the incision, delivered without difficulty, followed by shoulders and body with minimal traction without difficulty. Mouth and nose were suctioned there was dried on the field he was vigorously crying and moving. The cord was clamped times and cut at 1 minute delay and then the was handed off to the pediatric team. Then the placenta was delivered manually as intact and complete. Uterus was externalized and cleared of all clots and debris's. Uterine incision was repaired with 0 Vicryl in a running locked fashion, second umbricating layer was placed with the same suture in running locked fashion. Excellent hemostasis achieved. Cul-de-sac and the pelvis was irrigated with warm normal saline and suctioned. Incision was checked to be hemostatic again. there was a subserosal fibroid on the right side of fundus, irregular in shape and about 4 x 3 x 2 cm. Uterus was returned to the abdomen, parietal peritoneum was reapproximated with 3-0 Vicryl in a running fashion and the muscles were reapproximated in the same suture in a running fashion. All of the fascia and rectus muscles were hemostatic. Rectus fascia was reapproximated with 0 Vicryl starting from both columns meeting in the midline. Subcuticular fat tissue was brought together with 2-0 Vicryl in a running fashion, skin was closed with 4-0 Monocryl in a subcuticular cuticular fashion. The mom and baby tolerated procedure well. Sponge needle instrument count was c orrect x3. she was given 2 g of cefazolin before and 500 mg of azithromycin during surgery. No complications happened, I was present during whole procedure. My school health assistant was needed for retraction, hemostasis and aid during delivery of I attest to the content of the Intraoperative Record and any orders documented therein. Any exceptions are noted below.
[2025-05-25] MEDS: HYDROmorphone INJ 0.5 MG/0.5 ML SYR IV PRN (00:59)
[2025-05-25] MEDS: ACETAMINOPHEN 325 MG TAB PO SCH (01:00)
--- NOTE | 2025-05-25 01:09 | Anesthesiology Progress Note ---
Date of Service May 25, 2025 Anesthesia Post Procedure Vital Signs Vital Signs: Temp Pulse Resp BP Pulse Ox 05/25/25 01:04 88 96 05/25/25 00:59 86 144/85 H 98 05/25/25 00:54 88 98 05/25/25 00:53 86 139/81 05/25/25 00:49 99 H 97 05/25/25 00:44 93 H 98 05/25/25 00:39 98 05/25/25 00:39 98 H 05/25/25 00:39 96 H 133/88 05/24/25 23:24 99 05/24/25 23:24 117 H 05/24/25 23:24 109 H 141/77 H 05/24/25 23:21 101 H 145/98 H 05/24/25 23:19 100 H 137/79 99 05/24/25 23:17 96 H 141/78 H 05/24/25 23:14 91 H 100 05/24/25 23:09 90 99 05/24/25 23:04 98 H 100 05/24/25 23:02 107 H 132/78 05/24/25 22:59 91 H 97 05/24/25 22:54 95 H 98 05/24/25 22:49 89 98 05/24/25 22:47 106 H 133/73 05/24/25 22:44 96 H 99 05/24/25 22:39 105 H 99 05/24/25 22:34 120 H 99 05/24/25 22:31 130 H 136/105 H 05/24/25 22:29 93 H 99 05/24/25 22:24 88 97 05/24/25 22:19 97 H 99 05/24/25 22:18 96 H 137/71 05/24/25 22:14 111 H 99 05/24/25 22:09 101 H 100 05/24/25 22:04 95 H 99 05/24/25 22:01 88 119/77 05/24/25 22:00 18 05/24/25 22:00 18 05/24/25 21:59 109 H 100 05/24/25 21:54 99 H 98 05/24/25 21:49 79 97 05/24/25 21:46 83 103/56 L 05/24/25 21:44 79 97 05/24/25 21:39 83 98 05/24/25 21:34 88 99 05/24/25 21:31 87 109/58 L 05/24/25 21:30 18 05/24/25 21:30 18 05/24/25 21:29 80 99 05/24/25 21:24 92 H 99 05/24/25 21:19 80 98 05/24/25 21:16 98 H 109/56 L 05/24/25 21:14 90 98 05/24/25 21:09 79 99 05/24/25 21:06 105 H 93 05/24/25 21:04 77 100 05/24/25 21:03 78 119/58 L 05/24/25 21:00 18 05/24/25 21:00 37.2 C 18 05/24/25 20:59 79 97 05/24/25 20:54 82 99 05/24/25 20:49 80 99 05/24/25 20:48 85 117/57 L 05/24/25 20:44 77 99 05/24/25 20:39 84 98 05/24/25 20:34 77 97 05/24/25 20:33 80 120/58 L 05/24/25 20:30 18 05/24/25 20:30 18 05/24/25 20:29 85 99 05/24/25 20:24 80 98 05/24/25 20:19 77 98 05/24/25 20:17 78 131/77 05/24/25 20:14 78 99 05/24/25 20:09 74 98 05/24/25 20:04 77 98 05/24/25 20:02 70 131/68 05/24/25 20:00 18 05/24/25 20:00 18 05/24/25 19:59 74 99 05/24/25 19:54 73 99 05/24/25 19:49 75 99 05/24/25 19:48 71 133/74 05/24/25 19:44 81 99 05/24/25 19:39 83 96 05/24/25 19:34 91 H 100 05/24/25 19:32 78 112/56 L 05/24/25 19:30 16 05/24/25 19:30 16 05/24/25 19:29 76 98 05/24/25 19:24 82 97 05/24/25 19:19 76 96 05/24/25 19:17 79 115/57 L 05/24/25 19:14 82 100 05/24/25 19:09 73 98 05/24/25 19:07 37.2 C 18 05/24/25 19:04 79 97 05/24/25 19:01 93 H 111/58 L 05/24/25 18:59 73 97 05/24/25 18:54 72 98 05/24/25 18:50 90 92 05/24/25 18:49 80 99 05/24/25 18:47 69 110/65 05/24/25 18:44 70 96 05/24/25 18:39 69 96 05/24/25 18:34 68 96 05/24/25 18:32 68 115/71 05/24/25 18:30 18 05/24/25 18:30 18 05/24/25 18:29 69 96 05/24/25 18:24 69 96 05/24/25 18:19 71 96 05/24/25 18:16 68 111/69 05/24/25 18:14 68 97 05/24/25 18:09 66 97 05/24/25 18:04 75 98 05/24/25 18:01 66 124/69 05/24/25 17:59 70 99 05/24/25 17:54 71 98 05/24/25 17:49 80 99 05/24/25 17:48 71 122/68 05/24/25 17:46 37.0 C 05/24/25 17:44 74 99 05/24/25 17:39 74 99 05/24/25 17:34 88 97 05/24/25 17:32 83 117/72 05/24/25 17:30 18 05/24/25 17:30 18 05/24/25 17:29 75 99 05/24/25 17:24 84 99 05/24/25 17:19 75 98 05/24/25 17:16 76 129/68 05/24/25 17:14 76 98 05/24/25 17:10 72 119/69 05/24/25 17:09 76 99 05/24/25 17:05 79 128/75 05/24/25 17:04 78 100 05/24/25 17:00 74 18 123/66 05/24/25 16:59 76 98 08/14/25 16:55 83 20 131/61 05/24/25 16:54 83 97 05/24/25 16:50 89 20 124/70 05/24/25 16:49 92 H 98 05/24/25 16:48 78 126/69 05/24/25 16:46 81 136/76 05/24/25 16:44 100 05/24/25 16:44 82 05/24/25 16:44 82 140/83 05/24/25 16:42 88 139/80 05/24/25 16:40 95 H 20 128/70 05/24/25 16:39 83 99 05/24/25 16:38 75 134/75 05/24/25 16:36 90 124/74 05/24/25 16:35 20 05/24/25 16:35 20 05/24/25 16:34 81 124/71 99 05/24/25 16:33 79 116/72 05/24/25 16:31 75 125/65 05/24/25 16:30 20 05/24/25 16:30 20 05/24/25 16:29 76 99 05/24/25 16:28 81 149/70 H 05/24/25 16:26 20 05/24/25 16:26 36.7 C 20 05/24/25 16:24 83 98 05/24/25 16:21 86 92 05/24/25 16:19 88 98 05/24/25 16:14 94 H 100 05/24/25 16:09 73 100 05/24/25 16:04 81 100 05/24/25 15:49 76 136/84 05/24/25 14:10 18 05/24/25 14:10 36.9 C 18 05/24/25 14:09 75 142/90 H 05/24/25 11:50 20 05/24/25 11:50 36.9 C 20 05/24/25 11:49 75 130/84 05/24/25 07:07 20 05/24/25 07:07 36.9 C 20 05/24/25 07:06 71 127/78 05/24/25 02:27 36.7 C 64 16 105/55 L Pain Intensity Bilateral Abdomen: Pain Intensity: 1 Notes Mental Status: alert / awake / arousable Patient Amnestic to Procedure: Yes Nausea / Vomiting: adequately controlled Pain: improving with treatment Airway Patency, RR, SpO2: stable & adequate BP & HR: stable & adequate Hydration State: stable & adequate Neuraxial Anesthesia: was administered and sensory block is resolving Anesthetic Complications: no major complications apparent
[2025-05-25] MEDS: KETOROLAC 30 MG/ML VIAL IV SCH (01:36)
[2025-05-25] MEDS: IRON SUCROSE 200 MG in SODIUM CHLORIDE 0.9% 100 ML IV ONE (02:36)
[2025-05-25] MEDS ORDERED: SODIUM CHLORIDE 0.9% 100 ML IV PRN (03:33)
[2025-05-25] MEDS: SIMETHICONE 80 MG CHEW PO SCH (08:07)
[2025-05-25] MEDS: DOCUSATE SODIUM 100 MG CAP PO SCH (08:07)
[2025-05-25] MEDS: PRENATAL VITAMIN 1 TAB PO SCH (08:07)
[2025-05-25] MEDS: FERROUS SULFATE 325 MG TAB PO SCH (08:09)
--- NOTE | 2025-05-25 09:24 | Obstetrical Progress Note ---
Date of Service May 25, 2025 Assessment & Plan Admission and Anticipated Discharge Date Admission Date: May 22, 2025 Subjective abdomen soft and non tender bowel sounds hypoactive bandage clean and dry no calf tenderness vaginal bleeding scant hgb 12.4 preop Results & Data Vital Signs (Past 12 Hours) Vital Signs Temp Pulse Pulse Pulse Resp BP BP 05/25/25 08:00 16 05/25/25 07:50 36.8 C 84 20 122/82 05/25/25 06:00 16 05/25/25 05:00 16 05/25/25 03:27 36.9 C 77 16 147/89 H 05/25/25 03:20 16 05/25/25 03:09 73 148/73 H 05/25/25 03:04 79 05/25/25 03:00 82 138/74 05/25/25 02:59 85 05/25/25 02:54 88 05/25/25 02:50 85 145/84 H 05/25/25 02:49 92 H 05/25/25 02:44 76 05/25/25 02:39 37.3 C 18 05/25/25 02:39 72 141/81 H 05/25/25 02:34 77 05/25/25 02:29 78 144/81 H 05/25/25 02:24 72 05/25/25 02:19 05/25/25 02:19 78 05/25/25 02:19 77 140/82 05/25/25 02:14 76 05/25/25 02:09 18 05/25/25 02:09 78 146/83 H 05/25/25 02:04 82 05/25/25 01:59 81 144/79 H 05/25/25 01:54 78 05/25/25 01:49 74 149/85 H 05/25/25 01:44 83 05/25/25 01:39 18 05/25/25 01:39 85 146/79 H 05/25/25 01:34 81 05/25/25 01:29 18 05/25/25 01:29 79 142/70 H 05/25/25 01:24 93 H 05/25/25 01:19 18 05/25/25 01:19 84 138/80 05/25/25 01:14 91 H 05/25/25 01:09 18 05/25/25 01:09 84 152/83 H 05/25/25 01:04 88 05/25/25 00:59 18 05/25/25 00:59 86 144/85 H 05/25/25 00:54 88 05/25/25 00:53 86 139/81 05/25/25 00:49 18 05/25/25 00:49 99 H 05/25/25 00:44 93 H 05/25/25 00:39 37.3 C 18 05/25/25 00:39 05/25/25 00:39 98 H 05/25/25 00:39 96 H 133/88 05/24/25 23:24 05/24/25 23:24 117 H 05/24/25 23:24 109 H 141/77 H 05/24/25 23:21 101 H 145/98 H 05/24/25 23:19 100 H 137/79 05/24/25 23:17 96 H 141/78 H 05/24/25 23:14 91 H 05/24/25 23:09 90 05/24/25 23:04 98 H 05/24/25 23:02 107 H 132/78 05/24/25 22:59 91 H 05/24/25 22:54 95 H 05/24/25 22:49 89 05/24/25 22:47 106 H 133/73 05/24/25 22:44 96 H 05/24/25 22:39 105 H 05/24/25 22:34 120 H 05/24/25 22:31 130 H 136/105 H 05/24/25 22:29 93 H 05/24/25 22:24 88 05/24/25 22:19 97 H 05/24/25 22:18 96 H 137/71 05/24/25 22:14 111 H 05/24/25 22:09 101 H 05/24/25 22:04 95 H 05/24/25 22:01 88 119/77 05/24/25 22:00 18 05/24/25 22:00 18 05/24/25 21:59 109 H 05/24/25 21:54 99 H 05/24/25 21:49 79 05/24/25 21:46 83 103/56 L 05/24/25 21:44 79 05/24/25 21:39 83 05/24/25 21:34 88 05/24/25 21:31 87 109/58 L 05/24/25 21:30 18 05/24/25 21:30 18 05/24/25 21:29 80 05/24/25 21:24 92 H Pulse Ox O2 Del Method 05/25/25 08:00 98 05/25/25 07:50 98 Room Air 05/25/25 06:00 97 05/25/25 05:00 96 05/25/25 03:27 97 Room Air 05/25/25 03:20 97 05/25/25 03:09 97 05/25/25 03:04 95 05/25/25 03:00 05/25/25 02:59 97 05/25/25 02:54 96 05/25/25 02:50 05/25/25 02:49 96 05/25/25 02:44 98 05/25/25 02:39 05/25/25 02:39 97 05/25/25 02:34 96 05/25/25 02:29 98 05/25/25 02:24 96 05/25/25 02:19 97 05/25/25 02:19 05/25/25 02:19 05/25/25 02:14 96 05/25/25 02:09 05/25/25 02:09 97 05/25/25 02:04 97 05/25/25 01:59 98 05/25/25 01:54 95 05/25/25 01:49 97 05/25/25 01:44 99 05/25/25 01:39 05/25/25 01:39 99 05/25/25 01:34 96 05/25/25 01:29 05/25/25 01:29 96 05/25/25 01:24 97 05/25/25 01:19 05/25/25 01:19 97 05/25/25 01:14 99 05/25/25 01:09 05/25/25 01:09 97 05/25/25 01:04 96 05/25/25 00:59 05/25/25 00:59 98 05/25/25 00:54 98 05/25/25 00:53 05/25/25 00:49 05/25/25 00:49 97 05/25/25 00:44 98 05/25/25 00:39 05/25/25 00:39 98 05/25/25 00:39 05/25/25 00:39 05/24/25 23:24 99 05/24/25 23:24 05/24/25 23:24 05/24/25 23:21 05/24/25 23:19 99 05/24/25 23:17 05/24/25 23:14 100 05/24/25 23:09 99 05/24/25 23:04 100 05/24/25 23:02 05/24/25 22:59 97 05/24/25 22:54 98 05/24/25 22:49 98 05/24/25 22:47 05/24/25 22:44 99 05/24/25 22:39 99 05/24/25 22:34 99 05/24/25 22:31 05/24/25 22:29 99 05/24/25 22:24 97 05/24/25 22:19 99 05/24/25 22:18 05/24/25 22:14 99 05/24/25 22:09 100 05/24/25 22:04 99 05/24/25 22:01 05/24/25 22:00 05/24/25 22:00 05/24/25 21:59 100 05/24/25 21:54 98 05/24/25 21:49 97 05/24/25 21:46 05/24/25 21:44 97 05/24/25 21:39 98 05/24/25 21:34 99 05/24/25 21:31 05/24/25 21:30 05/24/25 21:30 05/24/25 21:29 99 05/24/25 21:24 99
[2025-05-25] MEDS ORDERED: HYDROmorphone INJ 0.5 MG/0.5 ML SYR IV PRN (17:47)
[2025-05-25] MEDS ORDERED: ONDANSETRON INJ 2 MG/ML 2 ML VIAL IV PRN (17:47)
[2025-05-25] MEDS ORDERED: PROMETHAZINE 12.5 MG/50.5 ML BAG IV PRN (17:47)
[2025-05-25] MEDS ORDERED: diphenhydrAMINE Capsule 25 MG CAP PO PRN (17:47)
[2025-05-25] MEDS ORDERED: diphenhydrAMINE 50 MG/ML VIAL IV PRN (17:47)
[2025-05-25 21:47] VITALS: TEMP 98.4
[2025-05-26] MEDS ORDERED: KETOROLAC 30 MG/ML VIAL IV PRN (00:32)
[2025-05-26] MEDS: IBUPROFEN 600 MG TAB PO SCH (03:16)
[2025-05-26 06:51] LABS: Hematocrit (blood only) 24.7 % (37.0-47.0); Hemoglobin 8.6 g/dl (12.0-16.0); Immature Granulocytes # (auto) 0.31 K/uL (0.01-0.20); Immature Granulocytes % (auto) 2.1 %; Mean Corpuscular Hemoglobin 33.0 pg (25.0-34.0); Mean Corpuscular Volume 94.6 fL (80.0-100.0); Platelet Count 137 K/uL (130-400); RDW Standard Deviation 47.4 fL (36.4-46.3); Red Blood Count 2.61 M/uL (4.20-5.40); White Blood Count 14.60 K/ul (4.8-10.8)
[2025-05-26] MEDS: MEASLES, MUMPS & RUBELLA VIRUS VACCINE (MMR) 0.5ML VIAL SQ ONE (07:21)
[2025-05-26 07:27] VITALS: BP 106/68; PULSE 61; RESP 18; O2SAT 98
[2025-05-26 08:50] LABS: Hematocrit (blood only) 27.0 % (37.0-47.0); Hemoglobin 8.8 g/dl (12.0-16.0); Immature Granulocytes # (auto) 0.25 K/uL (0.01-0.20); Immature Granulocytes % (auto) 1.7 %; Mean Corpuscular Hemoglobin 31.7 pg (25.0-34.0); Mean Corpuscular Volume 97.1 fL (80.0-100.0); Platelet Count 145 K/uL (130-400); RDW Standard Deviation 49.3 fL (36.4-46.3); Red Blood Count 2.78 M/uL (4.20-5.40); White Blood Count 14.83 K/ul (4.8-10.8)
--- NOTE | 2025-05-26 09:53 | Obstetrical Progress Note ---
Date of Service May 26, 2025 Assessment & Plan Admission and Anticipated Discharge Date Admission Date: May 22, 2025 Subjective Patient is seen and examined. She feels well, no complaints. Pain is under control with oral meds. Ambulating without dizziness Voiding without difficulty Tolerating regular diet with out N&V Flatus + BM neg Bleeding is minimal No fever/ chills/ CP/ SOB/ N&V/ Leg pain Breast feeding without problems Vital Signs Temp Pulse Resp BP Pulse Ox O2 Del Method 05/26/25 07:27 36.9 C 61 18 106/68 98 Room Air 05/26/25 03:45 36.9 C 67 16 115/70 97 Room Air Lab Results 05/23/25 05/26/25 05/26/25 Range/Units 02:03 06:24 08:39 WBC 9.60 14.60 H 14.83 H (4.8-10.8) K/ul RBC 3.81 L 2.61 L 2.78 L (4.20-5.40) M/uL Hgb 12.4 8.6 L 8.8 L (12.0-16.0) g/dl Hct 36.1 L 24.7 L 27.0 L (37.0-47.0) % MCV 94.8 94.6 97.1 (80.0-100.0) fL MCH 32.5 33.0 31.7 (25.0-34.0) pg MCHC 34.3 34.8 32.6 (32.0-36.0) g/dL RDW Std Deviation 45.3 47.4 H 49.3 H (36.4-46.3) fL RDW Coeff of Cesar 13.2 13.7 13.9 (11.5-14.5) % Plt Count 184 137 145 (130-400) K/uL MPV 12.4 12.2 11.6 (9.4-12.4) fL Immature Gran % (Auto) 2.1 1.7 % Neut % (Auto) 75.0 76.2 % Lymph % (Auto) 14.7 14.7 % [place] % (Auto) 7.1 6.3 % Eos % (Auto) 0.8 0.8 % Baso % (Auto) 0.3 0.3 % Neut # (Auto) 10.94 H 11.31 H (1.40-6.50) K/uL Lymph # (Auto) 2.15 2.18 (1.20-3.40) K/uL [place] # (Auto) 1.04 H 0.93 H (0.11-0.59) K/uL Eos # (Auto) 0.11 0.12 (0.00-0.50) K/uL Baso # (Auto) 0.05 0.04 (0.00-0.20) K/uL Immature Gran # (Auto) 0.31 H 0.25 H (0.01-0.20) K/uL Treponema pallidum Ab Negative (Negative) Blood Type O Positive Antibody Screen NEGATIVE Crossmatch See Detail PE: General: Alert, orientedx3, NAD CVS: S1S2 RRR Lungs; CTAB Abd: soft, NT, ND, BS+, fundus firm, below Umbilicus Incision: Clean, dry, intact Perineum intact, Lochia rubra minimal Ext; NT, 2+/2+ edema, homans sign neg/ neg AP: 29 yo s/p C Section, pod# 1 VSS Afebrile doing well Continue routine postop care Encourage ambulation, PO intake All questions were answered D/C home tomorrow Results & Data Vital Signs (Past 12 Hours) Vital Signs Temp Pulse Resp BP Pulse Ox O2 Del Method 05/26/25 07:27 36.9 C 61 18 106/68 98 Room Air 05/26/25 03:45 36.9 C 67 16 115/70 97 Room Air
--- NOTE | 2025-05-26 13:53 | Obstetrical Progress Note ---
Date of Service May 26, 2025 Assessment & Plan Admission and Anticipated Discharge Date Admission Date: May 22, 2025 Subjective Patient desired to go home tonight Discussed when to call All questions were answered. Results & Data Vital Signs (Past 12 Hours) Vital Signs Temp Pulse Resp BP Pulse Ox O2 Del Method 05/26/25 07:27 36.9 C 61 18 106/68 98 Room Air 05/26/25 03:45 36.9 C 67 16 115/70 97 Room Air
[2025-05-27] MEDS ORDERED: ACETAMINOPHEN 325 MG TAB PO PRN
[2025-05-27] MEDS ORDERED: IBUPROFEN 600 MG TAB PO PRN (00:32)
== END 2025-05-26 19:05 | disposition home health service (06) | DRG 788 ==
LOC: 4S1 23:54 → 4E2 05-25 03:39